=== PATIENT | male | born 1965 | race African-American/Black ===

== ENCOUNTER 2017-12-17 09:56 | Inpatient (IN) | payer OTHER ==
[2017-12-17 10:27] VITALS: BMI 34.8
--- NOTE | 2017-12-17 13:43 | HP ---
CIWA Score - CIWA Score Nausea/Vomitin-No Nausea/No Vomiting Muscle Tremors: 4-Moderate,w/Arms Extend Anxiety: 4-Mod. Anxious/Guarded Agitation: 3 Paroxysmal Sweats: 1-Minimal Palms Moist Orientation: 0-Oriented Tacttile Disturbances: 0-None Auditory Disturbances: 0-None Visual Disturbances: 0-None Headache: 2-Mild CIWA-Ar Total Score: 14 Admission ROS S - HPI Chief Complaint: ALCOHOL WITHDRAWAL SX Allergies/Adverse Reactions: Allergies Allergy/AdvReac Type Severity Reaction Status Date / Time No Known Allergies Allergy Verified 12/17/17 14:19 History of Present Illness: 52 Y/O AA/MALE WITH A HX OF ALCOHOL DEPENDENCE SEEKING DETOX TX. PT REPORTS HE WAS HERE FOR TREATMENT MANY YEARS AGO(2004) AND HAS NOT BEEN TO TREATMENT SINCE THEN. STATES HE WOULD LIKE TO GO TO REHAB AFTER DETOX. PT REPORTS HE HAS PRIMARY CARE AT [facility] WITH DR. LEOS. PT STATES HE WENT TO THE CLINIC YESTERDAY FOR HIS LEFT LEG ULCER AND BLOOD WORK FOR COUMADIN LEVEL MONITORING. PT HAS HX DVT LEFT LEG AND ON REPORTS HE IS ON COUMADIN 12 MG DAILY( PT BROUGHT IN SOME LOOSE PILLS), LAST TAKEN YESTERDAY. Exam Limitations: No Limitations - Ebola screening Have you traveled outside of the country in the last 21 days: No Have you had contact with anyone from an Ebola affected area: No Have you been sick,other than usual withdrawal symptoms: No Do you have a fever: No - Review of Systems Constitutional: Chills, Night Sweats, Changes in sleep EENT: reports: Tearing, Nose Congestion Respiratory: reports: Shortness of Breath (HX ASTHMA), Wheezing Cardiac: reports: Lightheadedness (AND "GROGGY" ON DRINKING TOO MUCH) GI: reports: Constipated, Diarrhea, Poor Fluid Intake, Abdominal cramping : reports: No Symptoms Reported Musculoskeletal: reports: Back Pain, Joint Pain, Muscle Pain Integumentary: reports: No Symptoms Reported Neuro: reports: Headache, Numbness, Tingling, Tremors, Unsteady Gait, Dizziness Endocrine: reports: No Symptoms Reported Hematology: reports: No Symptoms Reported Psychiatric: reports: Orientated x3, Anxious Other Systems: Reviewed and Negative Patient History - Patient Medical History Hx Asthma: Yes (MDI) Hx Chronic Obstructive Pulmonary Disease (COPD): No Hx Cardiac Disorders: No Hx Hypertension: No Hx Hypercholesterolemia: No Hx Seizures: No Hx Diabetes: No Hx Gastrointestinal Disorders: No Hx Genitourinary Disorders: No Hx Sexually Transmitted Disorders: No Hx Renal Disease (ESRD): No Hx Thyroid Disease: No Hx Human Immunodeficiency Virus (HIV): No (NEGATIVE HX) Hx Hepatitis C: No (DENIES) Hx Depression: No (DENIES BUT REPORTS ANXIETY AND "I SEE A THERAPIST FOR THAT") Hx Suicide Attempt: No (DENIES S/I) Hx Schizophrenia: No - Patient Surgical History Past Surgical History: No Hx Neurologic Surgery: No Hx Cataract Extraction: No Hx Cardiac Surgery: No Hx Lung Surgery: No Hx Breast Surgery: No Hx Breast Biopsy: No Hx Abdominal Surgery: No Hx Appendectomy: No Hx Cholecystectomy: No Hx Genitourinary Surgery: No Hx Orthopedic Surgery: No Anesthesia Reaction: No - PPD History Previous Implant?: Yes Documented Results: Negative w/o proof Implanted On Prior R Admission?: No PPD to be Administered?: Yes - Reproductive History Patient is a Female of Child Bearing Age (11 -55 yrs old): No (MALE) - Smoking Cessation Smoking history: Current some day smoker Have you smoked in the past 12 months: Yes Aproximately how many cigarettes per day: 1 Hx Chewing Tobacco Use: No Initiated information on smoking cessation: Yes 'Breaking Loose' booklet given: 12/17/17 - Substance & Tx. History Hx Alcohol Use: Yes (BEER/LIQUOR) Hx Substance Use: Yes (MARIJUANA) Substance Use Type: Alcohol, Marijuana - Substances Abused Alcohol Route: Oral Frequency: Daily Amount used: 8-9 (24) ounces cans of beer Age of first use: 9 Date of Last Use: 12/17/17 Marijuana/Hashish Route: Smoking Frequency: Daily Amount used: 3 bags of $5 Age of first use: 17 Date of Last Use: 12/14/17 Family Disease History - Family Disease History Family Disease History: Diabetes: Mother (), Other: Father () Admission Physical Exam BHS - Vital Signs Vital Signs: Vital Signs - 24 hr 12/17/17 10:24 Temperature 97.1 F L Pulse Rate 100 H Respiratory 19 Rate Blood Pressure 123/84 - Physical General Appearance: Yes: Moderate Distress, Irritable, Anxious HEENTM: Yes: EOMI, Normocephalic, JOSE ANTONIO, Pharynx Normal Respiratory: Yes: Chest Non-Tender, No Respiratory Distress, Wheezing, Expiration Neck: Yes: No masses,lesions,Nodules, Supple, Trachea in good position Breast: Yes: Breast Exam Deferred Cardiology: Yes: Regular Rhythm, Regular Rate, S1, S2 Abdominal: Yes: Normal Bowel Sounds, Non Tender, Soft Genitourinary: Yes: Other (N/C) Back: Yes: Within Normal Limits Musculoskeletal: Yes: full range of Motion, Gait Steady Extremities: Yes: Normal Range of Motion, Non-Tender Neurological: Yes: supervisor personnel clerks II-XII NML intact, Fully Oriented, Alert, Motor Strength 5/5 Integumentary: Yes: Dry, Warm Lymphatic: Yes: Within Normal Limits - Addiitonal Findings: LEFT LOWER LEG SUPERFICIAL ULCER WITH SMALL YELLOW DRAINAGE, NO FOUL SMELL. (PT COME IN WITH CLEAN DRESSING IN PLACE. DRESSING WAS REMOVED AND NEW CLEAN DRESSING REAPPLIED IN ADMISSION AREA BY NURSE) RIGHT LEG LOWER HEALING ULCER WITH SCAB BOTH LOWER EXTREMITIES WITH EDEMA, LEFT >RIGHT . - Diagnostic (1) Alcohol dependence with uncomplicated withdrawal Current Visit: Yes Status: Acute (2) Cannabis dependence, uncomplicated Current Visit: Yes Status: Acute (3) Hx of deep venous thrombosis Current Visit: Yes Status: Chronic Comment: LEFT LOWER EXTREMITY (4) Chronic ulcer of leg, limited to breakdown of skin Current Visit: Yes Status: Chronic Qualifiers: Laterality: left Qualified Code(s): L97.921 - Non-pressure chronic ulcer of unspecified part of left lower leg limited to breakdown of skin (5) Chronic edema Current Visit: Yes Status: Chronic Comment: BOTH LOWER EXTREMITIES (6) Venous (peripheral) insufficiency Current Visit: Yes Status: Chronic Cleared for Admission [facility] - Detox or Rehab [facility] Level of Care: Medically Managed Detox Regimen/Protocol: Librium [facility] Breath Alcohol Content Breath Alcohol Content: 0 Urine Drug Screen - Results Drug Screen Negative: No Urine Drug Screen Results: THC-Marijuana
[2017-12-17] MEDS ORDERED: P-EPHED 60MG/TRIPROLIDI 2.5MG TABLET PO PRN (14:19)
[2017-12-17] MEDS ORDERED: guaiFENesin/D-METHORPHAN HB 10 ML UNIT-DOSE CUPS PO PRN (14:19)
[2017-12-17] MEDS ORDERED: MENTHOL/PHENOL 1 EACH UD MM PRN (14:19)
[2017-12-17] MEDS ORDERED: ACETAMINOPHEN 325 MG TABLET (FP) PO PRN (14:19)
[2017-12-17] MEDS ORDERED: MAGNESIUM CITRATE 300 ML BOTTLE PO PRN (14:19)
[2017-12-17] MEDS ORDERED: MAGNESIUM HYDROX 2400MG/30ML ORAL SUSPENSION 30 ML CUP PO PRN (14:19)
[2017-12-17] MEDS ORDERED: chlordiazePOXIDE HCL 25 MG CAPSULE PO PRN (14:19)
[2017-12-17] MEDS ORDERED: IBUPROFEN 400 MG TABLET (FP) PO PRN (14:19)
[2017-12-17] MEDS ORDERED: MAG HYDROX/AL HYDROX/SIMETH 30 ML UNIT-DOSE CUP PO PRN (14:19)
[2017-12-17] MEDS ORDERED: LOPERAMIDE HCL 2 MG CAPSULE PO PRN (14:19)
[2017-12-17] MEDS ORDERED: ALBUTEROL SO4 8 GM HFA INHALER IH PRN (14:24)
[2017-12-17] MEDS ORDERED: SILVER SULFADIAZINE 1% TOP CREAM 50 GM JAR TP SCH (14:30)
[2017-12-17] MEDS: SILVER SULFADIAZINE 1% TOP CREAM 50 GM JAR TP SCH (15:33)
[2017-12-17 17:11] LABS: URINE APPEARANCE CLEAR; URINE BILIRUBIN NEGATIVE (<2.0 mg/dL); URINE COLOR YELLOW; URINE GLUCOSE (UA) NEGATIVE (NEGATIVE); URINE KETONE TRACE (NEGATIVE); URINE LEUK ESTERASE NEGATIVE (NEGATIVE); URINE NITRITE NEGATIVE (NEGATIVE); URINE PROTEIN NEGATIVE (NEGATIVE); URINE UROBILINOGEN NEGATIVE mg/dL (0.2-1.0)
[2017-12-17] MEDS: chlordiazePOXIDE HCL 25 MG CAPSULE PO SCH ×2 (17:46→22:07)
[2017-12-17] MEDS ORDERED: WARFARIN NA 10 MG, WARFARIN NA 2 MG PO SCH (18:00)
[2017-12-17] MEDS ORDERED: WARFARIN NA 3 MG TABLET PO SCH (18:00)
[2017-12-17] MEDS: THIAMINE HCL 100 MG TABLET (FP) PO SCH (22:07)
[2017-12-17] MEDS: MELATONIN 5 MG TABLETS PO PRN (22:08)
[2017-12-18] MEDS: chlordiazePOXIDE HCL 25 MG CAPSULE PO SCH ×4 (07:40→22:05)
[2017-12-18 10:06] LABS: HEMATOCRIT 42.2 % (35.4-49); HEMOGLOBIN 13.5 GM/dL (11.7-16.9); MCH 29.7 pg (25.7-33.7); MEAN CELL VOLUME 92.8 fl (80-96); MEAN PLT VOLUME 9.2 fl (7.5-11.1); PLATELET COUNT 135 K/MM3 (134-434); RBC 4.55 M/mm3 (4.00-5.60); RDW 12.9 % (11.9-15.9); WHITE BLOOD COUNT 3.5 K/mm3 (4.0-10.0)
[2017-12-18 10:13] LABS: CHLORIDE 103 mmol/L (98-107); SODIUM 140 mmol/L (136-145)
[2017-12-18 10:16] LABS: INR 3.45 (0.83-1.09)
[2017-12-18 10:24] LABS: ALBUMIN 3.4 g/dl (3.4-5.0); ALK PHOS 71 U/L (45-117); ANION GAP 7 MMOL/L (8-16); BILIRUBIN,TOTAL 0.6 mg/dL (0.2-1.0); BLOOD UREA NITROGEN 8 mg/dL (7-18); CALCIUM 8.4 mg/dL (8.5-10.1); CO2 30 mmol/L (21-32); CREATININE 0.9 mg/dL (0.7-1.3); GLUCOSE,RANDOM 107 mg/dL (74-106); SGOT/AST 27 U/L (15-37); SGPT/ALT 32 U/L (12-78); TOT PROT 6.6 g/dl (6.4-8.2)
[2017-12-18] MEDS: PRENATAL VITAMINS W/ FOLIC ACID TABLET (FP) PO SCH (10:30)
[2017-12-18] MEDS: SILVER SULFADIAZINE 1% TOP CREAM 50 GM JAR TP SCH (10:31)
--- NOTE | 2017-12-18 10:44 | EKG ---
Test Reason : Blood Pressure : / mmHG Vent. Rate : 097 BPM Atrial Rate : 097 BPM P-R Int : 150 ms QRS Dur : 088 ms QT Int : 354 ms P-R-T Axes : 064 048 042 degrees QTc Int : 449 ms NORMAL SINUS RHYTHM NORMAL ECG NO PREVIOUS ECGS AVAILABLE Confirmed by DEV BOTELLO, GERARDO ([id number]) on 12/18/2017 10:44:05 AM Referred By: Confirmed By:GERARDO MÉNDEZ MD
[2017-12-18 11:50] LABS: SICKLE CELL SCREEN NEGATIVE (NEGATIVE)
--- NOTE | 2017-12-18 16:06 | PN ---
S CIWA - CIWA Score Nausea/Vomitin-No Nausea/No Vomiting Muscle Tremors: 3 Anxiety: 3 Agitation: 3 Paroxysmal Sweats: 3 Orientation: 0-Oriented Tacttile Disturbances: 0-None Auditory Disturbances: 1-Very Mild Visual Disturbances: 2-Mild Sensitivity Headache: 2-Mild CIWA-Ar Total Score: 17 S Progress Note (SOAP) Subjective: Sweating, Fatigue, Stomach Cramping, Tremors, Diarrhea, Interrupted Sleep. Objective: PATIENT A & O X 3, OBSERVED AMBULATING ON UNIT. NO ACUTE DISTRESS. 12/18/17 16:10 Vital Signs Temperature 96.9 F L 12/18/17 14:34 Pulse Rate 88 12/18/17 14:34 Respiratory Rate 18 12/18/17 14:34 Blood Pressure 117/89 12/18/17 14:34 O2 Sat by Pulse Oximetry (%) Laboratory Tests 12/17/17 12/18/17 12/18/17 14:55 07:20 07:20 WBC 3.5 L RBC 4.55 Hgb 13.5 Hct 42.2 MCV 92.8 MCH 29.7 MCHC 32.0 RDW 12.9 Plt Count 135 MPV 9.2 Sickle Cell Screen Negative PT with INR 39.00 H INR 3.45 H Sodium Potassium Chloride Carbon Dioxide Anion Gap BUN Creatinine Creat Clearance w eGFR Random Glucose Calcium Total Bilirubin AST ALT Alkaline Phosphatase Total Protein Albumin Urine Color Yellow Urine Appearance Clear Urine pH 5.0 Ur Specific [place] 1.021 Urine Protein Negative Urine Glucose (UA) Negative Urine Ketones Trace H Urine Blood Negative Urine Nitrite Negative Urine Bilirubin Negative Urine Urobilinogen Negative Ur Leukocyte Esterase Negative RPR Titer 12/18/17 12/18/17 07:20 07:20 WBC RBC Hgb Hct MCV MCH MCHC RDW Plt Count MPV Sickle Cell Screen PT with INR INR Sodium 140 Potassium 4.0 Chloride 103 Carbon Dioxide 30 Anion Gap 7 L BUN 8 Creatinine 0.9 Creat Clearance w eGFR > 60 Random Glucose 107 H Calcium 8.4 L Total Bilirubin 0.6 AST 27 ALT 32 Alkaline Phosphatase 71 Total Protein 6.6 Albumin 3.4 Urine Color Urine Appearance Urine pH Ur Specific [place] Urine Protein Urine Glucose (UA) Urine Ketones Urine Blood Urine Nitrite Urine Bilirubin Urine Urobilinogen Ur Leukocyte Esterase RPR Titer Nonreactive LABS NOTED. 12/18/17 16:10 Assessment: 12/18/17 16:10 WITHDRAWAL SYMPTOMS. LEUKOPENIA. 12/18/17 16:11 Plan: CONTINUE DETOX. INCREASE DAILY PO FLUID INTAKE. PRN IMMODIUM FOR DIARRHEA. PATIENT REPORTS THAT HE HAS BEEN TAKING COUMADIN 12 MG PO DAILY AND THAT HE HAS BEEN TAKING THAT MEDICATION AT THAT DOSE FOR SOME TIME NOW. HOWEVER, PATIENT'S INTERNAL HOME PRESCRIPTION MEDICAL RECORD IN [facility] REVEALS THAT PATIENT'S MOST RECENT PRESCRIPTION FOR COUMADIN WAS FOR 10 MG PO DAILY ON 11/18/2017. PATIENT'S INR OF THIS AM WAS 3.45. WILL LOWER DAILY DOSE OF COUMADIN TO 10 MG PO DAILY @ 1800 X 2 DAYS, THEN WILL RE-CHECK PT/INR AND RE-EVALUATE WHEN THOSE RESULTS ARE AVAILABLE.
--- NOTE | 2017-12-18 16:22 | CONSULT ---
[facility] Psychiatric Consult - Data Date of interview: 12/18/17 Admission source: [facility] Identifying data: Readmission to [facility] for this 52 y/o AA male seeking detox treatment on for alcohol and cannabis dependence.Patient is single ,a fathre of two,domiciled,unemployed and supported on SSI benefits. Substance Abuse History: Confirmed by the patient in this session.Smoking history: Current some day smoker. Have you smoked in the past 12 months: Yes. Aproximately how many cigarettes per day: 1. Hx Chewing Tobacco Use: No. Initiated information on smoking cessation: Yes. 'Breaking Loose' booklet given : 12/17/17. - Substance & Tx. History. Hx Alcohol Use: Yes (BEER/LIQUOR). Hx Substance Use: Yes (MARIJUANA). Substance Use Type: Alcohol, Marijuana. - Substances Abused. Alcohol. Route: Oral. Frequency: Daily. Amount used: 8 -9 (24) ounces cans of beer. Age of first use: 9. Date of Last Use: . Marijuana/Hashish. Route: Smoking. Frequency: Daily. Amount used: 3 bags of $5. Age of first use: 17. Date of Last Use: 12/14/17 Medical History: Bronchial asthma,obesity and DVT of left leg (stasis ulcer). Psychiatric History: No reported history of psychiatric hospitalizations.patient indicates that he sees a therapist at the [facility] to address issue of bereavement (multiple deaths in the family in past 3-4 months).Not on psychotropic medications.Mr Jauregui denies history of suicide attempts. Physical/Sexual Abuse/Trauma History: Patient denies. Additional Comment: Urine Drug Screen Results: THC-Marijuana.Noted. Mental Status Exam - Mental Status Exam Alert and Oriented to: Time, Place, Person Cognitive Function: Good Patient Appearance: Well Groomed Mood: Nervous, Withdrawn Affect: Mood Congruent Patient Behavior: Fatigued, Cooperative Speech Pattern: Clear Voice Loudness: Normal Thought Process: Intact, Goal Oriented Thought Disorder: Not Present Hallucinations: Denies Suicidal Ideation: Denies Homicidal Ideation: Denies Insight/Judgement: Poor Sleep: Poorly, Difficulty falling asleep Appetite: Good Muscle strength/Tone: Normal Gait/Station: Normal Psychiatric Findings - Problem List ([place] 1, 2,3) (1) Alcohol dependence with uncomplicated withdrawal Current Visit: Yes Status: Acute (2) Cannabis dependence, uncomplicated Current Visit: Yes Status: Acute (3) Nicotine dependence Current Visit: Yes Status: Acute (4) Insomnia Current Visit: Yes Status: Acute - Initial Treatment Plan Initial Treatment Plan: Psychoeducation.Sleep hygiene.Detoxification.Ambien 5 mg po hs prn.Patient made aware of risk of parasomnias.Agrees to this careplan.Observation.
[2017-12-18] MEDS: WARFARIN NA 5 MG TABLET (UD) PO SCH (17:19)
[2017-12-18] MEDS: THIAMINE HCL 100 MG TABLET (FP) PO SCH (22:05)
[2017-12-18] MEDS: ZOLPIDEM TARTRATE 5 MG TABLET PO PRN (22:05)
[2017-12-19] MEDS: chlordiazePOXIDE HCL 25 MG CAPSULE PO SCH ×2 (05:24→10:33)
[2017-12-19] MEDS: SILVER SULFADIAZINE 1% TOP CREAM 50 GM JAR TP SCH (10:33)
[2017-12-19] MEDS: PRENATAL VITAMINS W/ FOLIC ACID TABLET (FP) PO SCH (10:33)
[2017-12-19] MEDS: chlordiazePOXIDE 5 MG CAPSULE PO SCH ×2 (17:21→22:10)
[2017-12-19] MEDS: WARFARIN NA 5 MG TABLET (UD) PO SCH (17:21)
--- NOTE | 2017-12-19 21:59 | PN ---
[facility] CIWA - CIWA Score Nausea/Vomitin-No Nausea/No Vomiting Muscle Tremors: None Anxiety: 3 Agitation: 2 Paroxysmal Sweats: 3 Orientation: 0-Oriented Tacttile Disturbances: 2-Mild Itch/Numbness/Burn Auditory Disturbances: 0-None Visual Disturbances: 2-Mild Sensitivity Headache: 0-None Present CIWA-Ar Total Score: 12 S Progress Note (SOAP) Subjective: Fatigue, Tremors, Interrupted Sleep, Diarrhea. Objective: PATIENT A & O X 3, OBSERVED AMBULATING ON UNIT. NO ACUTE DISTRESS. 12/19/17 21:57 Vital Signs Temperature 98 F 12/19/17 17:22 Pulse Rate 99 H 12/19/17 17:22 Respiratory Rate 18 12/19/17 17:22 Blood Pressure 131/80 12/19/17 17:22 O2 Sat by Pulse Oximetry (%) Laboratory Tests 12/17/17 12/18/17 12/18/17 14:55 07:20 07:20 WBC 3.5 L RBC 4.55 Hgb 13.5 Hct 42.2 MCV 92.8 MCH 29.7 MCHC 32.0 RDW 12.9 Plt Count 135 MPV 9.2 Sickle Cell Screen Negative PT with INR 39.00 H INR 3.45 H Sodium Potassium Chloride Carbon Dioxide Anion Gap BUN Creatinine Creat Clearance w eGFR Random Glucose Calcium Total Bilirubin AST ALT Alkaline Phosphatase Total Protein Albumin Urine Color Yellow Urine Appearance Clear Urine pH 5.0 Ur Specific [place] 1.021 Urine Protein Negative Urine Glucose (UA) Negative Urine Ketones Trace H Urine Blood Negative Urine Nitrite Negative Urine Bilirubin Negative Urine Urobilinogen Negative Ur Leukocyte Esterase Negative RPR Titer 12/18/17 12/18/17 07:20 07:20 WBC RBC Hgb Hct MCV MCH MCHC RDW Plt Count MPV Sickle Cell Screen PT with INR INR Sodium 140 Potassium 4.0 Chloride 103 Carbon Dioxide 30 Anion Gap 7 L BUN 8 Creatinine 0.9 Creat Clearance w eGFR > 60 Random Glucose 107 H Calcium 8.4 L Total Bilirubin 0.6 AST 27 ALT 32 Alkaline Phosphatase 71 Total Protein 6.6 Albumin 3.4 Urine Color Urine Appearance Urine pH Ur Specific [place] Urine Protein Urine Glucose (UA) Urine Ketones Urine Blood Urine Nitrite Urine Bilirubin Urine Urobilinogen Ur Leukocyte Esterase RPR Titer Nonreactive LABS NOTED. Assessment: 12/19/17 21:58 WITHDRAWAL SYMPTOMS. Plan: CONTINUE DETOX. REPEAT PT/INR FOR TOMORROW AM.
[2017-12-19] MEDS: THIAMINE HCL 100 MG TABLET (FP) PO SCH (22:10)
[2017-12-19] MEDS: MELATONIN 5 MG TABLETS PO PRN (22:11)
[2017-12-20] MEDS: chlordiazePOXIDE 5 MG CAPSULE PO SCH ×2 (05:28→10:33)
[2017-12-20] MEDS: PRENATAL VITAMINS W/ FOLIC ACID TABLET (FP) PO SCH (10:33)
[2017-12-20] MEDS: SILVER SULFADIAZINE 1% TOP CREAM 50 GM JAR TP SCH (10:34)
[2017-12-20 11:21] LABS: INR 2.11 (0.83-1.09); PROTHROMBIN TIME (PATIENT) 23.8 SEC (9.7-13.0)
[2017-12-20] MEDS: chlordiazePOXIDE HCL 10 MG CAPSULE PO SCH ×2 (17:34→22:05)
--- NOTE | 2017-12-20 18:29 | PN ---
S Progress Note Note: Patient is on coumadin therapy. INR, PTT INR 2.11 (0.83-1.09) H 12/20/17 07:00 INR is in therapeutic range. Vital Signs 12/20/17 12/20/17 13:16 17:26 Temperature 97.5 F L 98.8 F Pulse Rate 103 H 105 H Respiratory 20 18 Rate Blood Pressure 127/88 131/87 May continue coumadin.
[2017-12-20] MEDS: THIAMINE HCL 100 MG TABLET (FP) PO SCH (22:05)
[2017-12-20] MEDS: ZOLPIDEM TARTRATE 5 MG TABLET PO PRN (22:05)
[2017-12-21] MEDS: chlordiazePOXIDE HCL 10 MG CAPSULE PO SCH ×2 (05:22→10:32)
--- NOTE | 2017-12-21 10:25 | PN ---
S Progress Note (SOAP) Objective: Pt states going home today. Has LE ulcer which he can take care of- had this for about 3 days. Also on Coumadin for LE DVT since 2011 Vital Signs - 24 hr 12/20/17 12/20/17 12/20/17 13:16 17:26 21:09 Temperature 97.5 F L 98.8 F 97 F L Pulse Rate 103 H 105 H 91 H Respiratory 20 18 18 Rate Blood Pressure 127/88 131/87 126/85 12/21/17 12/21/17 00:30 06:21 Temperature 97 F L Pulse Rate 70 Respiratory 18 18 Rate Blood Pressure 95/65 Ass/Plan: completed alcohol detox, d/c today
--- NOTE | 2017-12-21 10:31 | DS ---
[facility] Detox Discharge Summary Admission Date: 12/17/17 - History Present History: Alcohol Dependence Pertinent Past History: Pt with h/o LE DVT, LE edema and now with small ulcer for the lst few days- states taking medications as needed and can change dressing on his own- does not need any home meds. Would like to go to rehab but no beds available, will f/ u PCP - Physical Exam Results Vital Signs: Vital Signs Temperature 97 F L 12/21/17 06:21 Pulse Rate 70 12/21/17 06:21 Respiratory Rate 18 12/21/17 06:21 Blood Pressure 95/65 12/21/17 06:21 O2 Sat by Pulse Oximetry (%) - Treatment Hospital Course: Detox Protocol Followed, Detoxed Safely, Responded well, Discharged Condition Good, Rehab Referral Accepted Patient has Accepted a Rehab Referral to: no rehab beds- pt will try to get in as outpt - Medication Discharge Medications: Ambulatory Orders Albuterol Sulfate Inhaler - [Ventolin Hfa Inhaler -] 2 inh PO Q4H PRN 12/17/17 Silver Sulfadiazine 1% Top Cr [Silvadene -] 1 applic TP DAILY 12/17/17 Warfarin Na [Coumadin] 12 mg PO DAILY 12/17/17
[2017-12-21] MEDS: PRENATAL VITAMINS W/ FOLIC ACID TABLET (FP) PO SCH (10:32)
[2017-12-21] MEDS: SILVER SULFADIAZINE 1% TOP CREAM 50 GM JAR TP SCH (10:32)
[2017-12-21 11:12] VITALS: BP 118/82; PULSE 102; TEMP 98.1
== END 2017-12-21 10:54 | disposition home or self-care (01) | DRG 775 ==
LOC: YASAS 09:56 → Y3N 14:07
PROC: HZ2ZZZZ Detoxification Services for Substance Abuse Treatment (ICD-10-PCS; principal; 2017-12-17)
DX: F10.230 Alcohol dependence with withdrawal, uncomplicated (principal); F12.20 Cannabis dependence, uncomplicated; F17.210 Nicotine dependence, cigarettes, uncomplicated; G47.00 Insomnia, unspecified; I87.2 Venous insufficiency (chronic) (peripheral); L97.921 Non-pressure chronic ulcer of unspecified part of left lower leg limited to breakdown of skin; Z86.718 Personal history of other venous thrombosis and embolism; Z79.01 Long term (current) use of anticoagulants; Z63.4 Disappearance and death of family member; Z87.09 Personal history of other diseases of the respiratory system
CPT/HCPCS: 36415; 80053; 81003; 85027; 85610; 85660; 86593; 93005; 93010